=== PATIENT | male | born 1995 | race Caucasian/White ===

== ENCOUNTER 2018-04-16 20:25 | Emergency (ER) | payer OTHER ==
[2018-04-16 21:06] VITALS: O2SAT 98
[2018-04-16] MEDS ORDERED: Sodium Chloride 0.9% 1,000 ML IV STA (21:44)
[2018-04-16 22:21] LABS: BASO % 0.3 % (0.0-2.0); EOS % 0.3 % (0.0-4.0); HEMOGLOBIN 14.1 g/dL (12.0-18.0); MEAN CELL VOLUME 81.6 fl (80.0-94.0); MEAN CORPUSCULAR HEMOGLOBIN 27.7 pg (27.0-31.0); MEAN PLATELET VOLUME 8.7 fl (7.2-11.7); MONO # 0.7 K/uL (0.0-0.8); MONO % 6.4 % (0.0-10.0); NEUT # 7.4 K/uL (1.8-7.0); RBC 5.09 Mil/uL (4.40-5.90); RED CELL DISTRIBUTION WIDTH 13.3 % (11.5-14.5); WHITE BLOOD COUNT 10.2 K/uL (4.8-10.8)
[2018-04-16 22:43] LABS: ALB/GLOB RATIO 1.3 (1.0-2.1); ALBUMIN 4.7 g/dL (3.5-5.0); ALT/SGPT 36 U/L (21-72); AST/SGOT 28 U/L (17-59); BILIRUBIN,DIRECT 0.1 mg/ml (0.0-0.4); BLOOD UREA NITROGEN 15 mg/dl (9-20); CALCIUM 9.3 mg/dL (8.4-10.2); GFR NON-AFRICAN AMERICAN > 60; LIPASE 37 U/L (23-300)
--- NOTE | 2018-04-16 23:00 | ED PDOC ---
HPI: Abdomen Time Seen by Provider: 04/16/18 21:35 Chief Complaint (Nursing): GI Problem History Per: Patient History/Exam Limitations: no limitations Onset/Duration Of Symptoms: Days Location Of Pain/Discomfort: Epigastric Additional Complaint(s): No PMHx presenting with vomiting, multiple episodes, nonbloody nonbilious vomiting, associated with epigastric pain, started yesterday after drinking many alcoholic beverages. Denies fevers, chills, abnormal stools. States the epigastric pain is burning. Past Medical History Reviewed: Historical Data, Nursing Documentation, Vital Signs Vital Signs: Last Vital Signs Temp 98.3 F 04/16/18 21:04 Pulse 81 04/16/18 21:04 Resp 16 04/16/18 21:04 BP 132/79 04/16/18 21:04 Pulse Ox 98 04/16/18 21:04 - Medical History PMH: No Chronic Diseases - Family History Family History: States: Unknown Family Hx - Home Medications Home Medications: Ambulatory Orders Medication Instructions Recorded Ondansetron ODT [Zofran ODT] 4 mg PO Q8 PRN #12 odt 04/17/18 - Allergies Allergies/Adverse Reactions: Allergies Allergy/AdvReac Type Severity Reaction Status Date / Time No Known Allergies Allergy Verified 04/16/18 21:04 Review of Systems ROS Statement: Except As Marked, All Systems Reviewed And Found Negative Gastrointestinal: Positive for: Nausea, Vomiting, Abdominal Pain. Negative for: Diarrhea Physical Exam - Reviewed Nursing Documentation Reviewed: Yes Vital Signs Reviewed: Yes - Physical Exam Appears: Positive for: Well, Non-toxic, No Acute Distress Head Exam: Positive for: ATRAUMATIC, NORMAL INSPECTION, NORMOCEPHALIC Skin: Positive for: Normal Color, Warm, DRY Eye Exam: Positive for: EOMI, Normal appearance, PERRL ENT: Positive for: Normal ENT Inspection Neck: Positive for: Normal, Painless ROM Cardiovascular/Chest: Positive for: Regular Rate, Rhythm Respiratory: Positive for: CNT, Normal Breath Sounds Gastrointestinal/Abdominal: Positive for: Normal Exam, Soft, Tenderness (mild epigastric tenderness) Back: Positive for: Normal Inspection Extremity: Positive for: Normal ROM Neurologic/Psych: Positive for: Alert, Oriented - Laboratory Results Result Diagrams: 04/16/18 22:07 04/16/18 22:07 - ECG O2 Sat by Pulse Oximetry: 98 Pulse Ox Interpretation: Normal Medical Decision Making Medical Decision Makin Patient presenting with nausea, vomiting, epigastric pain after alcohol binge --Well appearing, stable vitals --Likely alcohol induced gastritis --Will check labs to rule out pancreatic, hepatic, biliary pathology --Will give zofran, IVF, pepcid, and re-eval 0000 --Patient tolerating PO, states he's feeling much better --Advised patient to followup with [facility] --Very well appearing upon discharge Disposition - Clinical Impression Clinical Impression: Vomiting - Disposition Referrals: [facility] [Outside] Disposition: Routine/Home Disposition Time: 02:42 Condition: STABLE Prescriptions: Ondansetron ODT [Zofran ODT] 4 mg PO Q8 PRN #12 odt PRN Reason: Nausea/Vomiting Instructions: Nausea and Vomiting, Adult (DC) Forms: [employer] ([place])
[2018-04-17 04:22] VITALS: BP 131/66; PULSE 77; RESP 18; TEMP 98.7
== END 2018-04-17 00:15 | disposition home or self-care (01) ==
LOC: H.ER 20:25
DX: R11.10 Vomiting, unspecified (principal)
CPT/HCPCS: 80048; 80076; 80320; 83690; 85025; 96374; 96375; 99283; J2405; J7030